=== PATIENT | male | born 1975 | race Two or more races ===

== ENCOUNTER 2020-03-17 12:49 | Emergency (ER) | payer OTHER ==
[2020-03-17 13:13] VITALS: BP 122/64; PULSE 96; TEMP 98.1; BMI 29.2
[2020-03-17] MEDS ORDERED: KETOROLAC TROMETHAMINE 60 MG/2 ML VIAL IM ONE (13:48)
[2020-03-17] MEDS ORDERED: LIDOCAINE 5% TOPICAL PATCH TP ONE (13:49)
[2020-03-17] MEDS ORDERED: LIDOCAINE 5% TOPICAL PATCH ONE (14:46)
[2020-03-17] MEDS ORDERED: KETOROLAC TROMETHAMINE 30 MG/1 ML VIAL ONE (14:46)
== END 2020-03-17 15:03 | disposition home or self-care (01) ==
LOC: JER 12:49
PROC: 3E0233Z Introduction of Anti-inflammatory into Muscle, Percutaneous Approach (ICD-10-PCS; principal; 2020-03-17)
DX: M54.42 Lumbago with sciatica, left side (principal)
CPT/HCPCS: 72100-TC-FY; 73552-TC-LT-FY; 99284-25